=== PATIENT | male | born 1985 | race Caucasian/White ===

== ENCOUNTER → 2023-11-12 16:48 | Outpatient (CLI) | payer OTHER, SELFPAY ==
--- NOTE | 2023-11-12 | DI.RAD.S_ITS ---
PROCEDURE: XR EYE FOREIGN BODY RT INDICATIONS: PRE MRI TECHNIQUE: A single view of the orbits was acquired. COMPARISON: None. FINDINGS: Soft tissues: No metallic foreign bodies are visualized around the orbits. Bones: Bony structures appear unremarkable. Visualized sinuses appear clear. IMPRESSION: No metallic foreign bodies. Dictated by: Amish Machado M.D. on 11/13/2023 at 11:35 Approved by: Amish Machado M.D. on 11/13/2023 at 11:36
--- NOTE | 2023-11-12 16:50 | DI.MRI.S_ITS ---
PROCEDURE: MR KNEE RT WO CON INDICATIONS: Pain in right knee TECHNIQUE: Noncontrast sagittal PD fast spin echo and T2 fast spin echo with fat saturation, sagittal 3-D FLASH with fat saturation; coronal T1 spin echo and PD fast spin echo with fat saturation, and axial PD fast spin echo with fat saturation through the knee. COMPARISON: None. FINDINGS: Image quality: Excellent. Menisci: The medial and lateral menisci demonstrate normal morphology and internal signal. The meniscal root ligaments appear intact. Cruciate ligaments: The anterior and posterior cruciate ligaments appear intact. Medial structures: The medial collateral ligament appears intact. The posterior oblique ligament, semimembranosus tendon insertions, oblique popliteal ligament, and meniscocapsular junction appear intact. Visualized portions of the pes anserinus tendons appear normal. No abnormal bursal fluid. Lateral structures: The lateral collateral ligament, long and short heads of the biceps femoris tendon appear intact. The popliteus tendon appears normal; the popliteofibular ligament appears intact. The posterosuperior and anteroinferior popliteomeniscal fascicles appear intact. The arcuate and fabellofibular ligaments appear intact, on either side of the lateral inferior geniculate artery. Iliotibial band appears normal. Anterior structures: The quadriceps and patellar tendons appear intact. Patellar alignment is normal. Mild Hoffa's fat pad edema. The patellofemoral ligaments are intact. Bones and cartilage: Multifocal high-grade chondral irregularity in the lateral patella facet. Cartilage of the medial trochlea is unremarkable. Cartilage of the lateral trochlea is unremarkable. The cartilage of the medial and the lateral compartments are well maintained. No marrow edema. No acute fracture. Joint space: There is physiologic knee joint fluid. Trace popliteal cyst. Normal appearing synovial plicae are incidentally noted. IMPRESSION: 1. Mild Hoffa's fat pad edema, raising concern for patellar maltracking. Mild chondrosis of the patellofemoral compartment. 2. Trace popliteal cyst. Dictated by: Justine Bates M.D. on 11/13/2023 at 9:39 Approved by: Justine Bates M.D. on 11/13/2023 at 9:52
== END ==
LOC: MRI 16:49
PROVIDERS: PCP Student in an Organized Health Care Education/Training Program
DX: M94.261 Chondromalacia, right knee (principal); M25.561 Pain in right knee
CPT/HCPCS: 70030; 73721